=== PATIENT | male | born 1960 | race Caucasian/White ===

== ENCOUNTER 2019-01-28 15:33 | Inpatient (IN) | payer OTHER ==
[~2019-01-28] VITALS: Ht 172.7 cm; Wt 65.5 kg
[2019-01-28 16:23] LABS: microscopic required? NO
[2019-01-28 16:25] LABS: BASOPHIL % 1.4 % (0-2); PLATELET COUNT 321 x10^3mcL (130-400)
[2019-01-28 16:26] LABS: RED CELL DISTRIBUTION WIDTH 19.3 % (11.5-14.5)
[2019-01-28 16:33] LABS: UA SPECIFIC GRAVITY 1.025 (1.005-1.035); urine erythrocyte NEGATIVE (NEGATIVE)
[2019-01-28 16:35] LABS: CALCIUM 7.2 mg/dL (8.5-10.1); CARBON DIOXIDE 17.1 mmol/L (21-32); CHLORIDE SERUM 109 mmol/L (98-107); CREATININE SERUM 2.6 mg/dL (0.7-1.3); GFR1 28 mL/min; GLUCOSE SERUM 291 mg/dL (74-106); POTASSIUM SERUM 4.4 mmol/L (3.5-5.1); SODIUM SERUM 145 mmol/L (136-145)
[2019-01-28 16:39] LABS: ALKALINE PHOSPHATASE 197 U/L (46-116); ALT/SGPT 162 U/L (16-63); AST/SGOT 253 U/L (15-37); BILIRUBIN TOTAL 0.2 mg/dL (0.20-1.00); MAGNESIUM 2.4 mg/dL (1.8-2.4)
[2019-01-28 16:42] LABS: AMPHETAMINE QUAL UR POSITIVE (See below)
[2019-01-28 16:43] LABS: TOTAL PROTEIN, SERUM 5.4 g/dL (6.4-8.2)
[2019-01-28 19:16] LABS: CHOLESTEROL/HDL RATIO 2.5
[2019-01-28 19:18] LABS: T3 TOTAL 0.34 ng/mL
[2019-01-28 19:24] LABS: T4(THYROXINE) 5.3 ug/dL (4.7-13.3)
[2019-01-28 20:05] VITALS: BP 87/47
[2019-01-28 20:37] VITALS: BP 87/47
[2019-01-28 21:25] VITALS: BP 91/47
[2019-01-28 23:12] VITALS: BP 91/47
[2019-01-28 23:45] VITALS: BP 95/51
[2019-01-29] VITALS (15 sets, daily range): BP systolic 87–109; BP diastolic 45–63
[2019-01-29 04:51] LABS: BILIRUBIN DIRECT 0.09 mg/dL (0.0-0.2); BILIRUBIN TOTAL 0.34 mg/dL (0.20-1.00)
[2019-01-29 04:52] LABS: ALBUMIN 1.9 g/dL (3.4-5.0); TOTAL PROTEIN, SERUM 5.4 g/dL (6.4-8.2)
[2019-01-29 04:58] LABS: CALCIUM 6.5 mg/dL (8.5-10.1); CARBON DIOXIDE 15.7 mmol/L (21-32); CREATININE SERUM 3.1 mg/dL (0.7-1.3); POTASSIUM SERUM 4.8 mmol/L (3.5-5.1)
[2019-01-29 05:08] LABS: PLATELET COUNT 337 x10^3mcL (130-400); RED CELL DISTRIBUTION WIDTH 19.3 % (11.5-14.5)
[2019-01-29 05:24] LABS: PHOSPHOROUS 10.3 mg/dL (2.5-4.9)
[2019-01-29 06:48] LABS: BAND NEUTROPHIL 30 % (0-10); BASOPHIL 0 % (0-2); MONOCYTE 9 % (0-7); SEGMENTED NEUTROPHILS 56 % (37-75)
[2019-01-29 06:49] LABS: burr cell (echinocyte) 1+; ovalocyte/elliptocyte 1+; rbc morphology (normal/abnorm) ABNORMAL (NORMAL); tear drop cell (dacryocyte) 1+
[2019-01-29 06:50] LABS: PLATELET MORPHOLOGY GIANT PLATELET SEEN
[2019-01-30] VITALS (16 sets, daily range): BP systolic 102–127; BP diastolic 51–75
[2019-01-30 05:03] LABS: CALCIUM 6.3 mg/dL (8.5-10.1); CARBON DIOXIDE 26.6 mmol/L (21-32); POTASSIUM SERUM 5.1 mmol/L (3.5-5.1)
[2019-01-30 05:11] LABS: CREATININE SERUM 4.2 mg/dL (0.7-1.3)
[2019-01-30 05:12] LABS: PHOSPHOROUS 10.4 mg/dL (2.5-4.9)
[2019-01-30 05:17] LABS: BASOPHIL % 0.2 % (0-2); PLATELET COUNT 292 x10^3mcL (130-400); RED CELL DISTRIBUTION WIDTH 20.2 % (11.5-14.5)
[2019-01-30 09:00] LABS: rbc morphology (normal/abnorm) ABNORMAL (NORMAL); tear drop cell (dacryocyte) 1+
[2019-01-30 09:01] LABS: ovalocyte/elliptocyte 1+
[2019-01-31] VITALS (20 sets, daily range): BP systolic 107–142; BP diastolic 68–86
[2019-01-31 05:34] LABS: CARBON DIOXIDE 24.5 mmol/L (21-32); MAGNESIUM 2.3 mg/dL (1.8-2.4); PHOSPHOROUS 7.9 mg/dL (2.5-4.9)
[2019-01-31 05:36] LABS: CREATININE SERUM 4.4 mg/dL (0.7-1.3)
[2019-01-31 05:39] LABS: BASOPHIL % 0.4 % (0-2); PLATELET COUNT 225 x10^3mcL (130-400)
[2019-01-31 05:42] LABS: RED CELL DISTRIBUTION WIDTH 19.9 % (11.5-14.5)
[2019-02-01] VITALS (15 sets, daily range): BP systolic 116–161; BP diastolic 73–93
[2019-02-01 05:14] LABS: PLATELET COUNT 208 x10^3mcL (130-400)
[2019-02-01 05:26] LABS: BILIRUBIN DIRECT 0.17 mg/dL (0.0-0.2); BILIRUBIN TOTAL 0.56 mg/dL (0.20-1.00); CALCIUM 6.8 mg/dL (8.5-10.1); CARBON DIOXIDE 24.9 mmol/L (21-32); CREATININE SERUM 3.6 mg/dL (0.7-1.3); PHOSPHOROUS 5.8 mg/dL (2.5-4.9); POTASSIUM SERUM 3.4 mmol/L (3.5-5.1); RED CELL DISTRIBUTION WIDTH 20.3 % (11.5-14.5)
[2019-02-01 05:28] LABS: ALBUMIN 1.5 g/dL (3.4-5.0)
[2019-02-01 13:29] LABS: MONOCYTE 5 % (0-7); SEGMENTED NEUTROPHILS 88 % (37-75)
[2019-02-01 13:30] LABS: ovalocyte/elliptocyte 1+
[2019-02-01 13:45] LABS: rbc morphology (normal/abnorm) ABNORMAL (NORMAL)
[2019-02-01 13:46] LABS: PLATELET MORPHOLOGY PLATELETS NORMAL
[2019-02-02] VITALS (15 sets, daily range): BP systolic 104–150; BP diastolic 60–97
[2019-02-02 05:15] LABS: BASOPHIL % 0.1 % (0-2); PLATELET COUNT 241 x10^3mcL (130-400)
[2019-02-02 05:23] LABS: CALCIUM 7.5 mg/dL (8.5-10.1); CARBON DIOXIDE 28.4 mmol/L (21-32); CREATININE SERUM 2.6 mg/dL (0.7-1.3); PHOSPHOROUS 4.5 mg/dL (2.5-4.9); POTASSIUM SERUM 3.1 mmol/L (3.5-5.1)
[2019-02-02 05:25] LABS: RED CELL DISTRIBUTION WIDTH 20.8 % (11.5-14.5)
[2019-02-03] VITALS (19 sets, daily range): BP systolic 101–168; BP diastolic 52–93
[2019-02-03 06:07] LABS: BASOPHIL % 0.3 % (0-2); PLATELET COUNT 220 x10^3mcL (130-400)
[2019-02-03 06:11] LABS: CALCIUM 7.7 mg/dL (8.5-10.1); CARBON DIOXIDE 28.1 mmol/L (21-32); CREATININE SERUM 1.9 mg/dL (0.7-1.3); MAGNESIUM 2.2 mg/dL (1.8-2.4); POTASSIUM SERUM 3.5 mmol/L (3.5-5.1)
[2019-02-03 06:28] LABS: RED CELL DISTRIBUTION WIDTH 20.4 % (11.5-14.5)
[2019-02-04] VITALS (14 sets, daily range): BP systolic 113–170; BP diastolic 46–91; Ht 172.7 cm; Wt 65.5 kg
[2019-02-04 06:21] LABS: BASOPHIL % 0.1 % (0-2); PLATELET COUNT 239 x10^3mcL (130-400)
[2019-02-04 06:45] LABS: RED CELL DISTRIBUTION WIDTH 20.1 % (11.5-14.5)
[2019-02-04 06:55] LABS: CALCIUM 7.9 mg/dL (8.5-10.1); CARBON DIOXIDE 28.2 mmol/L (21-32); CREATININE SERUM 1.6 mg/dL (0.7-1.3); MAGNESIUM 2.2 mg/dL (1.8-2.4); PHOSPHOROUS 2.4 mg/dL (2.5-4.9); POTASSIUM SERUM 3.6 mmol/L (3.5-5.1)
[2019-02-04 10:44] LABS: rbc morphology (normal/abnorm) ABNORMAL (NORMAL)
== END 2019-02-04 17:03 | disposition short-term general hospital (02) | DRG 870 ==
LOC: ED 15:33 → EDBD 15:33 → IC 18:14
PROVIDERS: Emergency Medicine; Internal Medicine; Internal Medicine Nephrology; ADMIT Internal Medicine
PROC: 5A1955Z Respiratory Ventilation, Greater than 96 Consecutive Hours (ICD-10-PCS; principal; 2019-01-28)
PROC: 0BH18EZ Insertion of Endotracheal Airway into Trachea, Via Natural or Artificial Opening Endoscopic (ICD-10-PCS; 2019-01-28)
DX: A41.9 Sepsis, unspecified organism (principal); R65.21 Severe sepsis with septic shock; J69.0 Pneumonitis due to inhalation of food and vomit; J96.02 Acute respiratory failure with hypercapnia; J96.01 Acute respiratory failure with hypoxia; N17.0 Acute kidney failure with tubular necrosis; G93.41 Metabolic encephalopathy; E43 Unspecified severe protein-calorie malnutrition; E87.0 Hyperosmolality and hypernatremia; M62.82 Rhabdomyolysis; L97.829 Non-pressure chronic ulcer of other part of left lower leg with unspecified severity; E11.622 Type 2 diabetes mellitus with other skin ulcer; E11.65 Type 2 diabetes mellitus with hyperglycemia; B95.61 Methicillin susceptible Staphylococcus aureus infection as the cause of diseases classified elsewhere; L89.621 Pressure ulcer of left heel, stage 1; L89.611 Pressure ulcer of right heel, stage 1; E86.0 Dehydration; E83.51 Hypocalcemia; F15.10 Other stimulant abuse, uncomplicated; F12.10 Cannabis abuse, uncomplicated; Z68.21 Body mass index [BMI] 21.0-21.9, adult
CPT/HCPCS: 36600; 82962; 83880; 84439; 87804; 90658; A4628; C9113; G0378; G0480; J0282; J0610; J1644; J1940; J1953; J2060; J2250; J2543; J3010; J3370; J3490; J7030; J7050; Q0092